=== PATIENT | female | born 1955 | race Caucasian/White ===

== ENCOUNTER 2016-12-01 14:24 | Emergency (ER) | payer BC ==
[2016-12-01 15:08] LABS: BASO % 0.2 % (0.1-1.2); EOS # 0.1 10_X3_uL (0.0-0.4); EOS % 0.9 % (0.7-5.8); GRAN # 4.4 10_X3_uL (1.6-6.1); GRAN % 75.5 % (34.0-71.1); HEMATOCRIT 43.7 % (34-45); HEMOGLOBIN 14.2 g/dL (11.2-15.7); LYMPH % 17.3 % (19.3-51.7); MEAN CORPUSCULAR HEMOGLOBIN 29.3 pg (27.0-33.0); MEAN CORPUSCULAR HGB CONC 32.5 g/dL (32.0-36.0); MEAN CORPUSCULAR VOLUME 90.1 fL (79-95); MEAN PLATELET VOLUME 11.7 fl (7.5-11.5); MONO # 0.4 10_X3_uL (0.2-0.9); MONO % 6.1 % (4.7-12.5); PLATELET COUNT 196 x10_3/uL (182-369); RED BLOOD COUNT 4.85 x10_6/uL (3.9-5.2); RED CELL DISTRIBUTION WIDTH 13.1 % (11.7-14.4); WHITE BLOOD COUNT 5.9 x10_3/uL (4.0-10.0)
[2016-12-01 16:29] LABS: ALBUMIN 3.9 gm/dL (3.4-5.0); ALKALINE PHOSPHATASE 67 U/L (50-136); ALT/SGPT 11 U/L (3.5-33.9); AST/SGOT 11 U/L (7.04-26.96); BILIRUBIN,TOTAL 0.18 mg/dL (0.0-1.0); BLOOD UREA NITROGEN 13 mg/dL (7-18); CALCIUM 8.9 mg/dL (8.7-10.7); CARBON DIOXIDE 23 mmol/L (21-32); CREATINE KINASE 150 U/L (21-215); CREATININE 0.7 mg/dL (0.6-1.3); GLUCOSE,RANDOM 118 mg/dL (70-99); TOTAL PROTEIN 6.5 gm/dL (6.4-8.2)
[2016-12-01 16:45] LABS: POTASSIUM 3.9 mmol/L (3.5-5.1); SODIUM 143 mmol/L (136-145)
== END 2016-12-01 17:11 | disposition home or self-care (01) ==
LOC: ER 14:24
PROVIDERS: Internal Medicine
DX: H81.10 Benign paroxysmal vertigo, unspecified ear (principal); I10 Essential (primary) hypertension; Z98.51 Tubal ligation status; Z79.82 Long term (current) use of aspirin; Z79.899 Other long term (current) drug therapy; Z88.5 Allergy status to narcotic agent
CPT/HCPCS: 36415; 70450; 80053; 82550; 82553; 85025; 93005; 99284-25; J8597